=== PATIENT | male | born 1970 | race Hispanic/Latino ===

== ENCOUNTER 2024-04-11 08:12 | Day surgery (SDC) | payer BC ==
[2024-04-08 14:15] LABS: Absolute Eosinophils 0.1 K/uL (0-0.5); Absolute Lymphocytes (CBC) 1.9 K/uL (0.7-4.9); Absolute Monocytes 0.3 K/uL (0.1-1.3); Absolute Neutrophil 3.5 K/uL (1.8-8.0); Basophils % 0.8 % (0-1.3); Eosinophils % 1.5 % (0-4.4); Hematocrit 45.6 % (39.6-49.0); Hemoglobin 15.2 g/dL (13.6-17.9); MCH 29.8 pg (27.0-35.0); MCHC 33.3 g/dL (32.0-36.0); MCV 89.5 fL (80-100); MPV 9.8 fL (7.6-11.3); Monocytes % 5.7 % (3.3-12.3); Platelets 230 thou/uL (152-406); RBC Red Blood Cell Count 5.09 M/uL (4.33-5.43); Red Cell Distribution Width 13.6 % (12.1-15.2)
[2024-04-08 14:26] LABS: Anion Gap 6.8 mEq/L (5.0-15.0); Potassium 3.8 mEq/L (3.5-5.1)
--- NOTE | 2024-04-09 14:50 | EKG ---
Test Date: 2024-04-08 Test Time: 13:57:09 [employer] Operator: MICK MEASUREMENT RESULTS: Intervals: Rate: 86 RI: 162 QRSD: 86 QT: 358 QTc: 428 [place]: P: 44 RI: 162 QRS: -9 T: 46 INTERPRETIVE STATEMENTS: Normal sinus rhythm Normal ECG No previous ECG available for comparison Electronically Signed On 04-09-24 14:46:21 CDT by Paul Cartwright
[2024-04-11] MEDS ORDERED: Ringers Lactate 1,000 ML IV ONE (08:31)
[2024-04-11] MEDS ORDERED: propofoL 200 MG/20 ML VIAL IV ONE ×2 (09:19)
[2024-04-11] MEDS ORDERED: LIDOCAINE 1% MPF 5 ML VIAL ONE (09:20)
[2024-04-11 11:43] VITALS: O2SAT 100
[2024-04-11 11:45] VITALS: BP 136/84; TEMP 97.3
== END 2024-04-11 11:57 | disposition home or self-care (01) ==
LOC: OR 08:12
PROVIDERS: ATTEND Surgery
PROC: 0DBL8ZX Excision of Transverse Colon, Via Natural or Artificial Opening Endoscopic, Diagnostic (ICD-10-PCS; 2024-04-11)
PROC: 0DBM8ZX Excision of Descending Colon, Via Natural or Artificial Opening Endoscopic, Diagnostic (ICD-10-PCS; 2024-04-11)
PROC: 0DBK8ZX Excision of Ascending Colon, Via Natural or Artificial Opening Endoscopic, Diagnostic (ICD-10-PCS; principal; 2024-04-11 09:45)
DX: Z12.11 Encounter for screening for malignant neoplasm of colon (principal); K57.32 Diverticulitis of large intestine without perforation or abscess without bleeding; K64.8 Other hemorrhoids; D12.2 Benign neoplasm of ascending colon; K63.5 Polyp of colon
CPT/HCPCS: 93005; 85025; 80048; 36415; 88305; 45380; J2704 ×2; J2003; J7120